=== PATIENT | male | born 1975 | race Caucasian/White ===

== ENCOUNTER 2023-07-24 09:25 | Outpatient (CLI) | payer OTHER, SELFPAY | END 2023-07-24 09:26 | disposition home or self-care (01) | LOC: NFLDREF 08-06 09:00 | PROVIDERS: PCP Physician Assistant Medical; Referring Provider Physician Assistant Medical; Visit Provider Physician Assistant Medical | DX: E78.5 Hyperlipidemia, unspecified (principal); R53.83 Other fatigue | CPT/HCPCS: 80053; 80061; 82728; 84443 ==

== ENCOUNTER 2023-08-28 06:35 | Outpatient (CLI) | payer OTHER, SELFPAY ==
--- NOTE | 2023-08-28 08:51 | W.ANESCHARGE ---
Anesthesia Charges Start Date/Time Anesthesia Start Date: 08/28/23 Anesthesia Start Time: 08:10 Stop Date/Time Anesthesia Stop Date: 08/28/23 Anesthesia Stop Time: 08:47
--- NOTE | 2023-08-28 08:58 | W.ANESCHARGE ---
Anesthesia Charges Start Date/Time Anesthesia Start Date: 08/28/23 Anesthesia Start Time: 08:10 Stop Date/Time Anesthesia Stop Date: 08/28/23 Anesthesia Stop Time: 08:47
== END 2023-08-28 06:36 | disposition home or self-care (01) ==
LOC: OP CLINIC 06:36
PROVIDERS: PCP Physician Assistant Medical; Visit Provider Surgery
DX: Z12.11 Encounter for screening for malignant neoplasm of colon (principal); K63.5 Polyp of colon; K57.30 Diverticulosis of large intestine without perforation or abscess without bleeding
CPT/HCPCS: 00811; 45385; 88305; J2704

== ENCOUNTER 2023-10-06 20:32 | Outpatient (CLI) | payer OTHER, SELFPAY ==
--- NOTE | 2023-10-31 11:53 | W.PM.SLEEP ---
Sleep Study Details Details Interpreting Provider: Geovany Date of Sleep Study: 10/06/23 Sleep Study Details: STUDY TYPE:? Attended, hospital-based, with CPAP ? BMI:? 39.5 ORDERING PROVIDER:? Elia INDICATION:? Concern about sleep apnea ? SLEEP SUMMARY:? 389 minutes total sleep time RESPIRATORY SUMMARY:? AHI 89. No supine REM sleep was seen. Supine AHI is 115.7, nonsupine AHI is 82.9 A CPAP trial was attempted in the [place] patient was titrated up to a pressure of 11. He began experiencing REM stage sleep at pressures from 7 through 11. AHI remained elevated above 15 at all of those pressures. This would be considered an incomplete titration PERIODIC LIMB MOVEMENTS OF SLEEP:? None CARDIAC:? Awake 64, asleep 59. No arrhythmias noted IMPRESSION:? Severe obstructive sleep apnea with incomplete CPAP titration RECOMMENDATION: Recommend trial AutoSet CPAP pressure 8-18. If that is not effective would consider titration for bilevel.
== END 2023-10-06 20:33 | disposition home or self-care (01) ==
LOC: SLEEP 20:34
PROVIDERS: PCP Physician Assistant Medical; Visit Provider Physician Assistant Medical
DX: G47.33 Obstructive sleep apnea (adult) (pediatric) (principal)
CPT/HCPCS: 95811